=== PATIENT | female | born 1970 | race Caucasian/White ===

== ENCOUNTER 2024-04-27 12:49 | Emergency (ER) | payer OTHER ==
[~2024-04-27] VITALS: Ht 160 cm; Wt 70.3 kg
[2024-04-27] MEDS ORDERED: CEPH500C2 PO (13:47)
[2024-04-27] MEDS ORDERED: SULF1TAB48 PO (13:47)
[2024-04-27 14:02] LABS: BASOPHILS # (AUTO) 0.1 K/uL (0.0-0.2); BASOPHILS % (AUTO) 0.6 % (0.0-2.0); EOSINOPHILS # (AUTO) 0.1 K/uL (0.0-0.7); EOSINOPHILS % (AUTO) 1.1 % (0.0-6.0); HEMATOCRIT 37 % (33-45); HEMOGLOBIN 12.8 g/dL (11.5-14.8); LYMPHOCYTES % (AUTO) 29.5 % (20.0-44.0); MEAN CORPUSCULAR HEMOGLOBIN 32 PG (26.0-33.0); MEAN CORPUSCULAR HGB CONC 35 g/dl (31.0-36.0); MEAN CORPUSCULAR VOLUME 92 fL (82-100); MONOCYTES # (AUTO) 0.6 K/uL (0.1-1.30); MONOCYTES % (AUTO) 6.2 % (2.0-12.0); NEUTROPHILS # (AUTO) 6.3 K/uL (1.8-8.9); NEUTROPHILS % (AUTO) 62.6 % (43.0-81.0); PLATELET COUNT (AUTO) 332 K/uL (150-450); RED BLOOD CELL COUNT(AUTO) 4.03 MIL/uL (4.0-5.2); RED CELL DISTRIBUTION WIDTH 13.7 % (11.5-15.0); WHITE BLOOD COUNT (AUTO) 10.1 K/uL (4.3-11.0)
[2024-04-27 14:53] LABS: CREATININE 0.8 mg/dL (0.6-1.3); POTASSIUM 3.3 mmol/L (3.5-5.1)
[2024-04-27 16:49] VITALS: BP 125/98; TEMP 98; O2SAT 99
== END 2024-04-27 17:00 | disposition home or self-care (01) ==
LOC: ER 12:52
DX: L03.113 Cellulitis of right upper limb (principal); M79.641 Pain in right hand; R11.2 Nausea with vomiting, unspecified; R41.0 Disorientation, unspecified; R51.9 Headache, unspecified; F41.9 Anxiety disorder, unspecified; Z60.2 Problems related to living alone
CPT/HCPCS: 99284; 70450; 85025; 80048; 36415; A6407

== ENCOUNTER 2024-09-25 08:47 | Inpatient (IN) | payer OTHER ==
[~2024-09-25] VITALS: Ht 157.5 cm; Wt 63.5 kg
[~2024-09-25 08:47] MED LIST: CEPH500C2 PO; SULF1TAB48 PO
[2024-09-25] MEDS ORDERED: BENZONATATE 100 MG CAPSULE PO ONE (09:11)
[2024-09-25] MEDS: BENZONATATE 100 MG CAPSULE PO PRN (09:37)
[2024-09-25 09:43] LABS: BASOPHILS % (AUTO) 0.2 % (0.0-2.0); EOSINOPHILS # (AUTO) 0.1 K/uL (0.0-0.7); EOSINOPHILS % (AUTO) 0.3 % (0.0-6.0); HEMATOCRIT 35 % (33-45); HEMOGLOBIN 11.8 g/dL (11.5-14.8); LYMPHOCYTES # (AUTO) 1.6 K/uL (0.8-4.8); LYMPHOCYTES % (AUTO) 5.8 % (20.0-44.0); MEAN CORPUSCULAR HEMOGLOBIN 30 PG (26.0-33.0); MEAN CORPUSCULAR HGB CONC 34 g/dl (31.0-36.0); MEAN CORPUSCULAR VOLUME 90 fL (82-100); MONOCYTES # (AUTO) 0.4 K/uL (0.1-1.30); MONOCYTES % (AUTO) 1.4 % (2.0-12.0); NEUTROPHILS # (AUTO) 24.6 K/uL (1.8-8.9); NEUTROPHILS % (AUTO) 92.3 % (43.0-81.0); PLATELET COUNT (AUTO) 412 K/uL (150-450); RED BLOOD CELL COUNT(AUTO) 3.94 MIL/uL (4.0-5.2); RED CELL DISTRIBUTION WIDTH 13.9 % (11.5-15.0); WHITE BLOOD COUNT (AUTO) 26.6 K/uL (4.3-11.0)
[2024-09-25 09:55] LABS: CALCIUM, SERUM 9.4 mg/dL (8.5-10.1); CARBON DIOXIDE 23 mmol/L (21-32); CHLORIDE 91 mmol/L (98-107); CREATININE 0.9 mg/dL (0.6-1.3); GLUCOSE 126 mg/dL (74-106); POTASSIUM 3.1 mmol/L (3.5-5.1); SODIUM SERUM 125 mmol/L (136-145); UREA NITROGEN, BLOOD 6 mg/dL (7-18)
[2024-09-25 10:05] LABS: ALANINE AMINOTRANSFERASE 18 U/L (12-78); ALBUMIN 2.9 g/dL (3.4-5.0); ALKALINE PHOSPHATASE 145 U/L (46-116); ASPARTATE AMINOTRANSFERASE 15 U/L (15-37); BILIRUBIN,DIRECT 0.6 mg/dL (0.0-0.2); BILIRUBIN,TOTAL 1.4 mg/dL (0.2-1.0); NT-PRO BNP 476 pg/mL (0-125); TOTAL PROTEIN, SERUM 7.9 g/dL (6.4-8.2)
[2024-09-25] MEDS: IV NS 0.9% 1,000 ML BAG IV ONE (10:24)
[2024-09-25] MEDS: PIPERACILLIN /TAZOBACTAM 3.375 G in IV D5W 50 ML IV ONE (10:25)
[2024-09-25 10:53] LABS: INR 1.17 (0.91-1.10); PARTIAL THROMBOPLASTIN TIME 34.3 SEC (24.3-34.3); PROTHROMBIN TIME 12.3 SECS (9.2-11.1)
[2024-09-25] MEDS: VANCOMYCIN 1 GM in IV D5W 250 ML IV ONE (10:53)
[2024-09-25 10:55] LABS: LACTIC ACID 2.5 mmol/L (0.4-2.0)
[2024-09-25] MEDS ORDERED: ROSU10TA29 PO (11:10)
[2024-09-25] MEDS ORDERED: BACL20TA PO (11:10)
[2024-09-25] MEDS ORDERED: NORT25CA PO (11:10)
[2024-09-25] MEDS ORDERED: CLON0.5T4 PO (11:10)
[2024-09-25] MEDS ORDERED: LEVO75TA7 PO (11:10)
[2024-09-25] MEDS ORDERED: CITA20TA16 PO (11:10)
[2024-09-25 11:25] LABS: APPEARANCE,URINE CLEAR (CLEAR); BILIRUBIN,URINE Negative (NEGATIVE); BLOOD, URINE Moderate Ery/uL (NEGATIVE); COLOR,URINE YELLOW (YELLOW); KETONES,URINE 40 mg/dL (NEGATIVE); LEUKOCYTE ESTERASE ,URINE Negative (NEGATIVE); PH,URINE 6.5 (5.0-8.0); PROTEIN,URINE 100 mg/dl (NEGATIVE); UGLUCOSE Negative (NEGATIVE)
[2024-09-25 11:26] LABS: NITRITE, URINE NEGATIVE (NEGATIVE)
[2024-09-25 11:34] LABS: ADD URINE CULTURE NO; BACTERIA,URINE Rare /HPF (None Seen); SQUAMOUS EPITHELIAL CELL,UR Rare /HPF (None Seen); WBC,URINE 0-2 /HPF (0-3)
[2024-09-25 12:00] VITALS: BP 129/73; TEMP 101.7; O2SAT 97
[2024-09-25] MEDS: AZITHROMYCIN 500 MG in IV D5W 250 ML IV ONE (12:23)
[2024-09-25] MEDS: IV NS 0.9% 1,000 ML IV PRN (13:29)
[2024-09-25] MEDS ORDERED: Z GUARD REMEDY 4 OZ OINT TP PRN (13:30)
[2024-09-25] MEDS ORDERED: MAG HYDROX/AL HYDROX/SIMETH 30 ML UDC PO PRN (13:30)
[2024-09-25] MEDS ORDERED: HYDROCODONE/APAP 5/325MG TABLET PO PRN (13:30)
[2024-09-25] MEDS ORDERED: TEMAZEPAM 15 MG CAPSULE PO PRN (13:30)
[2024-09-25] MEDS ORDERED: MAGNESIUM HYDROXIDE 30 ML UDC PO PRN (13:30)
[2024-09-25] MEDS ORDERED: ONDANSETRON HCL/PF 4 MG/2 ML VIAL IVP PRN (13:30)
[2024-09-25] MEDS ORDERED: clonazePAM 0.5 MG TABLET PO PRN (13:30)
[2024-09-25] MEDS: ENOXAPARIN SODIUM 40 MG/0.4 ML DISP.SYRIN SQ SCH (13:31)
[2024-09-25] MEDS: ACETAMINOPHEN 325 MG TABLET PO PRN (13:57)
[2024-09-25 15:09] LABS: NEUTROPHILS % (MANUAL) 88 (42-76)
[2024-09-25 15:10] LABS: LYMPHOCYTES % (MANUAL) 12 % (16-48); MONOCYTES % (MANUAL) 3 % (0-11.0); PLATELET ESTIMATE ADEQUATE
[2024-09-25] MEDS: ZOSYN IVPB 3.375 G in IV D5W 50ml IV SCH (15:14)
[2024-09-25 16:00] VITALS: BP 120/72; TEMP 98.2; O2SAT 98
[2024-09-25 20:00] VITALS: BP 126/75; TEMP 98.1; O2SAT 99
[2024-09-25] MEDS: BACLOFEN (10 MG) 10 MG TABLET PO SCH (21:15)
[2024-09-25] MEDS: DOXYCYCLINE 100 MG in IV D5W 100 ML IV SCH (21:15)
[2024-09-25] MEDS: NORTRIPTYLINE HCL 25 MG CAPSULE PO SCH (21:15)
[2024-09-26] MEDS: POTASSIUM CHLORIDE 20 MEQ TAB.PRT.SR PO ONE (04:25)
[2024-09-26 07:26] LABS: BASOPHILS % (AUTO) 0.2 % (0.0-2.0); EOSINOPHILS # (AUTO) 0.1 K/uL (0.0-0.7); EOSINOPHILS % (AUTO) 0.4 % (0.0-6.0); HEMATOCRIT 31 % (33-45); HEMOGLOBIN 10.1 g/dL (11.5-14.8); LYMPHOCYTES # (AUTO) 2.3 K/uL (0.8-4.8); LYMPHOCYTES % (AUTO) 10.3 % (20.0-44.0); MEAN CORPUSCULAR HEMOGLOBIN 30 PG (26.0-33.0); MEAN CORPUSCULAR HGB CONC 33 g/dl (31.0-36.0); MEAN CORPUSCULAR VOLUME 91 fL (82-100); MONOCYTES % (AUTO) 4.7 % (2.0-12.0); NEUTROPHILS # (AUTO) 18.7 K/uL (1.8-8.9); NEUTROPHILS % (AUTO) 84.4 % (43.0-81.0); PLATELET COUNT (AUTO) 399 K/uL (150-450); RED CELL DISTRIBUTION WIDTH 14.2 % (11.5-15.0); WHITE BLOOD COUNT (AUTO) 22.1 K/uL (4.3-11.0)
[2024-09-26] MEDS: PANTOPRAZOLE 40 MG TABLET.DR PO SCH (07:34)
[2024-09-26 08:00] VITALS: BP 135/70; TEMP 98.4; O2SAT 97
[2024-09-26 08:14] LABS: CALCIUM, SERUM 8.4 mg/dL (8.5-10.1); CREATININE 0.6 mg/dL (0.6-1.3); MAGNESIUM 2.2 mg/dL (1.8-2.4); PHOSPHORUS 2.2 mg/dL (2.5-4.9); POTASSIUM 3.1 mmol/L (3.5-5.1)
[2024-09-26] MEDS: CITALOPRAM HYDROBROMIDE 20 MG TABLET PO SCH (08:25)
[2024-09-26] MEDS: LEVOTHYROXINE SODIUM 75 MCG TABLET PO SCH (08:25)
[2024-09-26] MEDS: ATORVASTATIN 40 MG TABLET PO SCH (08:26)
[2024-09-26 08:30] LABS: THYROID STIMULATING HORMONE 9.18 uIU/mL (0.358-3.74)
[2024-09-26] MEDS: NEUTRA PHOS 1 POWD.PACKET PO ONE (11:43)
[2024-09-26 12:00] VITALS: BP 120/77; TEMP 98.6; O2SAT 96
[2024-09-26 16:00] VITALS: BP 121/74; TEMP 98.1; O2SAT 98
[2024-09-26 20:00] VITALS: BP 139/82; TEMP 97.9; O2SAT 97
[2024-09-27 08:00] VITALS: BP 134/68; TEMP 97.9; O2SAT 98
[2024-09-27 08:07] LABS: CALCIUM, SERUM 8.5 mg/dL (8.5-10.1); CREATININE 0.6 mg/dL (0.6-1.3)
[2024-09-27 08:27] LABS: THYROID STIMULATING HORMONE 13.4 uIU/mL (0.358-3.74); URIC ACID 2.6 mg/dL (2.6-7.2)
[2024-09-27 08:28] LABS: BASOPHILS % (AUTO) 0.3 % (0.0-2.0); EOSINOPHILS # (AUTO) 0.2 K/uL (0.0-0.7); EOSINOPHILS % (AUTO) 1.1 % (0.0-6.0); HEMATOCRIT 30 % (33-45); HEMOGLOBIN 9.8 g/dL (11.5-14.8); LYMPHOCYTES # (AUTO) 2.4 K/uL (0.8-4.8); LYMPHOCYTES % (AUTO) 15.9 % (20.0-44.0); MEAN CORPUSCULAR HEMOGLOBIN 30 PG (26.0-33.0); MEAN CORPUSCULAR HGB CONC 33 g/dl (31.0-36.0); MEAN CORPUSCULAR VOLUME 90 fL (82-100); MONOCYTES # (AUTO) 0.7 K/uL (0.1-1.30); MONOCYTES % (AUTO) 4.9 % (2.0-12.0); NEUTROPHILS # (AUTO) 11.6 K/uL (1.8-8.9); NEUTROPHILS % (AUTO) 77.8 % (43.0-81.0); PLATELET COUNT (AUTO) 434 K/uL (150-450); RED BLOOD CELL COUNT(AUTO) 3.32 MIL/uL (4.0-5.2); RED CELL DISTRIBUTION WIDTH 14.3 % (11.5-15.0); WHITE BLOOD COUNT (AUTO) 14.9 K/uL (4.3-11.0)
[2024-09-27] MEDS: LEVOTHYROXINE SODIUM 100 MCG TABLET PO SCH (08:55)
[2024-09-27 09:59] LABS: POTASSIUM 2.9 mmol/L (3.5-5.1)
[2024-09-27 10:52] VITALS: BP 134/68; TEMP 97.9; O2SAT 98
[2024-09-27 12:28] LABS: EOSINOPHILS % (MANUAL) 2 % (0-4); LYMPHOCYTES % (MANUAL) 13 % (16-48); MONOCYTES % (MANUAL) 7 % (0-11.0); NEUTROPHILS % (MANUAL) 78 (42-76); PLATELET ESTIMATE ADEQUATE
[2024-09-27] MEDS: ACIDOPHILUS/BULGARICUS 1 EACH TAB.CHEW PO SCH (12:28)
[2024-09-27] MEDS: POTASSIUM CHLORIDE 20 MEQ TAB.PRT.SR PO ONE ×3 (12:29→20:19)
[2024-09-27 16:00] VITALS: BP 133/71; TEMP 98.1; O2SAT 98
[2024-09-27 20:22] VITALS: BP 144/87; TEMP 97.9; O2SAT 98
[2024-09-28] MEDS ORDERED: ACID1TAB12 PO (07:45)
[2024-09-28] MEDS ORDERED: LEVO100T9 PO (07:45)
[2024-09-28] MEDS ORDERED: AMOX-430 PO (07:45)
[2024-09-28 08:07] VITALS: BP 156/88; TEMP 97.7; O2SAT 98
[2024-09-28] MEDS: MAGNESIUM OXIDE 400 MG TABLET PO ONE (08:42)
[2024-09-28] MEDS: POTASSIUM CHLORIDE 20 MEQ TAB.PRT.SR PO ONE (08:43)
[2024-09-28 10:46] LABS: BASOPHILS # (AUTO) 0.1 K/uL (0.0-0.2); BASOPHILS % (AUTO) 0.7 % (0.0-2.0); EOSINOPHILS # (AUTO) 0.1 K/uL (0.0-0.7); EOSINOPHILS % (AUTO) 1.1 % (0.0-6.0); HEMATOCRIT 32 % (33-45); HEMOGLOBIN 10.2 g/dL (11.5-14.8); LYMPHOCYTES # (AUTO) 2.4 K/uL (0.8-4.8); LYMPHOCYTES % (AUTO) 19.9 % (20.0-44.0); MEAN CORPUSCULAR HEMOGLOBIN 30 PG (26.0-33.0); MEAN CORPUSCULAR HGB CONC 32 g/dl (31.0-36.0); MEAN CORPUSCULAR VOLUME 91 fL (82-100); MONOCYTES # (AUTO) 0.6 K/uL (0.1-1.30); MONOCYTES % (AUTO) 4.7 % (2.0-12.0); NEUTROPHILS % (AUTO) 73.6 % (43.0-81.0); PLATELET COUNT (AUTO) 511 K/uL (150-450); RED BLOOD CELL COUNT(AUTO) 3.47 MIL/uL (4.0-5.2); RED CELL DISTRIBUTION WIDTH 14.6 % (11.5-15.0); WHITE BLOOD COUNT (AUTO) 12.3 K/uL (4.3-11.0)
[2024-09-28 10:58] LABS: CALCIUM, SERUM 8.8 mg/dL (8.5-10.1); CREATININE 0.7 mg/dL (0.6-1.3); POTASSIUM 4.2 mmol/L (3.5-5.1)
[2024-09-28 16:26] LABS: BAND % (MANUAL) 1 % (0.0-5.0); BASOPHILS % (MANUAL) 0 % (0.0-2.0); EOSINOPHILS % (MANUAL) 2 % (0-4); LYMPHOCYTES % (MANUAL) 21 % (16-48); METAMYELOCYTES % 1 % (0-0); MONOCYTES % (MANUAL) 3 % (0-11.0); NEUTROPHILS % (MANUAL) 72 (42-76); PLATELET ESTIMATE INCREASED
== END 2024-09-28 13:50 | disposition home or self-care (01) | DRG 720 ==
LOC: ER 08:53 → TELE 12:23 → MED 09-26 12:53
PROVIDERS: ADMIT Nurse Practitioner Acute Care; ATTEND Nurse Practitioner Acute Care
DX: A41.9 Sepsis, unspecified organism (principal); J96.01 Acute respiratory failure with hypoxia; R65.21 Severe sepsis with septic shock; J15.9 Unspecified bacterial pneumonia; E87.1 Hypo-osmolality and hyponatremia; E83.39 Other disorders of phosphorus metabolism; E86.9 Volume depletion, unspecified; E78.5 Hyperlipidemia, unspecified; E87.6 Hypokalemia; F41.9 Anxiety disorder, unspecified; Z20.822 Contact with and (suspected) exposure to COVID-19; F43.10 Post-traumatic stress disorder, unspecified; E06.3 Autoimmune thyroiditis; K90.0 Celiac disease; R63.1 Polydipsia
CPT/HCPCS: 36415; 71045-TC; 80048-TC; 80076-TC; 81001; 83605-TC; 83735-TC; 83880; 84100-TC; 84443-TC; 84484-TC; 84550-TC; 85025-TC; 85730-TC; 87040-TC; 87086-TC; 97110-TC; 97116-TC; A4223; G0378; J0456; J1650; J2543; J3370; J3490; J7030; J7060

== ENCOUNTER 2024-10-04 16:26 | Emergency (ER) | payer OTHER ==
[~2024-10-04] VITALS: Ht 154.9 cm; Wt 60.3 kg
[~2024-10-04 16:26] MED LIST changes: +ACID1TAB12 PO; +AMOX-430 PO; +BACL20TA PO; -CEPH500C2 PO; +CITA20TA16 PO; +CLON0.5T4 PO; +LEVO100T9 PO; +NORT25CA PO; +ROSU10TA29 PO; -SULF1TAB48 PO
[2024-10-04] MEDS ORDERED: MECLIZINE HCL 25 MG TABLET ONE (16:50)
[2024-10-04] MEDS: MECLIZINE HCL 12.5 MG TABLET PO ONE (16:57)
[2024-10-04 17:17] LABS: CALCIUM, SERUM 8.9 mg/dL (8.5-10.1); CREATININE 0.9 mg/dL (0.6-1.3); PLATELET COUNT (AUTO) 869 K/uL (150-450); RED BLOOD CELL COUNT(AUTO) 3.62 MIL/uL (4.0-5.2); RED CELL DISTRIBUTION WIDTH 14.5 % (11.5-15.0); SODIUM SERUM 137 mmol/L (136-145); UREA NITROGEN, BLOOD 7 mg/dL (7-18); WHITE BLOOD COUNT (AUTO) 13.3 K/uL (4.3-11.0)
[2024-10-04 20:09] VITALS: BP 116/74; TEMP 98.1; O2SAT 9
== END 2024-10-04 20:09 | disposition home or self-care (01) ==
LOC: ER 16:26
DX: S82.891A Other fracture of right lower leg, initial encounter for closed fracture (principal); K90.0 Celiac disease; F41.9 Anxiety disorder, unspecified; Z79.899 Other long term (current) drug therapy; Z79.890 Hormone replacement therapy; W18.39XA Other fall on same level, initial encounter; Y93.89 Activity, other specified; Y92.89 Other specified places as the place of occurrence of the external cause; Y99.8 Other external cause status
CPT/HCPCS: 99285; 73200; 71045; 93005; 73610; 73080; 85025; 80048; 36415; 84484; J8597